=== PATIENT | female | born 1990 | race African-American/Black ===

== ENCOUNTER 2025-06-24 10:13 | Emergency (ER) | payer OTHER, SELFPAY ==
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
[2025-06-24 10:22] VITALS: BP 133/83; PULSE 80; RESP 18; TEMP 36.4; O2SAT 100
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
[2025-06-24] MEDS: ACETAMINOPHEN 500 MG TABLET 1000 MG PO (11:09)
[2025-06-24] MEDS: KETOROLAC 30 MG/ML VIAL (*BKC) IM (11:11)
[2025-06-24 11:13] LABS: Add Urine Microscopic? NO; Appearance Urine Clear (Clear); Glucose Urine UA Negative (Negative); Leukocyte Esterase Ur Negative LEU/UL (Negative); Nitrate Urine Negative (Negative); Specific Grav Ur 1.025 (1.001-1.035)
[2025-06-24 11:30] LABS: Pregnancy On Board Control Positive
== END 2025-06-24 12:04 | disposition home or self-care (01) ==
PROVIDERS: Emergency Provider Student in an Organized Health Care Education/Training Program
DX: S13.4XXA Sprain of ligaments of cervical spine, initial encounter (principal); G44.89 Other headache syndrome; V43.52XA Car driver injured in collision with other type car in traffic accident, initial encounter
CPT/HCPCS: 70450; 72125; 81003; 81025; 96372; 99284; A9270; J1885; L0140